=== PATIENT | female | born 1945 | race Caucasian/White ===

== ENCOUNTER → 2018-01-01 | Outpatient (CLI) | payer OTHER, MEDICARE | LOC: RAD 14:49 | DX: Z12.31 Encounter for screening mammogram for malignant neoplasm of breast (principal) ==

== ENCOUNTER → 2018-09-27 | Outpatient (CLI) | payer OTHER, MEDICARE | LOC: RAD 11:02 | DX: J18.9 Pneumonia, unspecified organism (principal); M47.814 Spondylosis without myelopathy or radiculopathy, thoracic region ==

== ENCOUNTER → 2018-11-11 | Outpatient (CLI) | payer OTHER, MEDICARE ==
[2018-11-11 09:41] LABS: CREATININE 0.9 mg/dL (0.6-1.0)
== END ==
LOC: CAT 09:06
PROVIDERS: Family Medicine
DX: K44.9 Diaphragmatic hernia without obstruction or gangrene (principal)

== ENCOUNTER → 2019-06-23 | Outpatient (CLI) | payer OTHER, MEDICARE | LOC: BC 14:55 | DX: Z12.31 Encounter for screening mammogram for malignant neoplasm of breast (principal) ==

== ENCOUNTER → 2019-06-25 | Outpatient (CLI) | payer OTHER, MEDICARE | LOC: ULTRA 14:00 | DX: N60.01 Solitary cyst of right breast (principal) ==

== ENCOUNTER → 2019-06-25 | Outpatient (CLI) | payer OTHER | LOC: CAT 14:40 | DX: Z13.6 Encounter for screening for cardiovascular disorders (principal); E78.00 Pure hypercholesterolemia, unspecified; I25.10 Atherosclerotic heart disease of native coronary artery without angina pectoris ==

== ENCOUNTER → 2020-02-13 | Outpatient (CLI) | payer OTHER, MEDICARE | LOC: ULTRA 12:24 | DX: R60.0 Localized edema (principal) ==

== ENCOUNTER → 2020-07-13 | Outpatient (CLI) | payer OTHER, MEDICARE | LOC: RAD 13:27 | PROVIDERS: ATTEND Family Medicine | DX: Z12.31 Encounter for screening mammogram for malignant neoplasm of breast (principal) ==

== ENCOUNTER 2020-12-17 18:40 | Inpatient (IN) | payer OTHER, MEDICARE ==
[~2020-12-17] VITALS: Ht 162.6 cm; Wt 107.0 kg
--- NOTE | ~2020-12-17 | P ---
[facility] [place] [address] PROCEDURE REPORT Name: PAUL ISRAEL Room #: 440-P [facility] IN M.R.#: [id number] Admission: 12/17/20 Attend Phys: Thomas Reyes MD Discharge: Date of : 41 Report #: [id number] THIS REPORT FOR: cc: Maximo Reis MD, Neal A. MD McElhinney, Christian C. MD ~ DATE OF SERVICE: 12/19/2020 PROCEDURE PERFORMED: Upper endoscopy with biopsies. HISTORY OF PRESENT ILLNESS: The patient is a 75-year-old female with recent nausea, vomiting, bright red blood per rectum and diarrhea. CT was essentially negative. Plan is for EGD and flexible sigmoidoscopy. The patient denies any dysphagia. She has been on PPI therapy. DESCRIPTION OF PROCEDURE: The risks and benefits of the procedure were explained to the patient, those risks including but not limited to bleeding, perforation and the risk of sedation. She understood these risks and gave informed consent. Sedation was given using propofol per anesthesia. Next, using a standard Olympus upper endoscope, the scope was placed in the patient's mouth and advanced under direct vision through the esophagus, stomach and into the second portion of the duodenum. The larynx was normal in appearance. The esophagus was normal throughout. The GE junction was normal. Upon entering the stomach, a small hiatal hernia was noted. Overall, the gastric mucosa was normal in the fundus and body. A mild gastritis was noted in the gastric antrum, but no evidence of ulcerations or bleeding. Biopsies were obtained to rule out H. pylori. The pylorus was normal and patent. The duodenal bulb, first and second portion were all normal. The scope was then withdrawn and the procedure terminated. The patient tolerated the procedure well. IMPRESSION: 1. Small hiatal hernia. 2. Mild gastritis. 3. Otherwise, normal upper endoscopy. RECOMMENDATIONS: 1. Await biopsy results. 2. Continue PPI therapy and antinausea medications p.r.n. 3. We will proceed with flexible sigmoidoscopy next today. [facility] [address] [place] [address] PROCEDURE REPORT Name: ISRAELIESHAPAUL N Room #: 440-P [facility] IN M.R.#: [id number] Admission: 12/17/20 Attend Phys: Thomas Reyes MD Discharge: Date of : 41 Report #: [id number] Thank you for allowing me to participate in her care. By: [id number] Nelson Damian MD /nt
--- NOTE | ~2020-12-17 | P ---
[place] [address] PROCEDURE REPORT Name: PAUL ISRAEL Room #: 440-P ADM IN M.R.#: [id number] Admission: 12/17/20 Attend Phys: Thomas Reyes MD Discharge: Date of : 41 Report #: [id number] THIS REPORT FOR: cc: Maximo Reis MD, Neal A. MD McElhinney, Christian C. MD ~ DATE OF SERVICE: 12/19/2020 PROCEDURE PERFORMED: Flexible sigmoidoscopy with biopsies. HISTORY OF PRESENT ILLNESS: The patient is a 75-year-old female with recent nausea, vomiting, diarrhea and bright red blood per rectum. She apparently underwent a colonoscopy by Dr. Moraes, my partner approximately 6 months ago in which polyps were removed, but otherwise negative, possible history of diverticulosis per the patient. A CT scan of the abdomen and pelvis was performed on admission on 12/17/2020 showing moderate hiatal hernia, fatty infiltration of the liver, appendix was normal, moderate stool in the colon. No evidence of colitis or inflammation. She also has a history of CLL. Her hemoglobin on admission was 13.8, today is 12.8. She reports passing several clots of bright red blood over the last few days. She also complains of low crampy abdominal pain. Upper endoscopy was just performed, which was essentially normal other than mild gastritis and a small hiatal hernia. Plan is for flexible sigmoidoscopy. DESCRIPTION OF PROCEDURE: The risks and benefits of the procedure were explained to the patient, those risks including but not limited to bleeding, perforation and the risk of sedation. She understood these risks and gave informed consent. Sedation was given using propofol per anesthesia. Next, a digital rectal exam showed small external hemorrhoid, nonbleeding, otherwise normal. Next, using a standard Olympus colonoscope, the scope was placed in the patient's anus and advanced under direct vision into the mid ascending colon. The prep was fairly good throughout. There was a small amount of stool. Multiple washings and aspirations were performed. The ascending, transverse, descending and sigmoid colon were all normal. Random biopsies were obtained to rule out the possibility of microscopic colitis. The rectal mucosa was normal with the exception of very mild erythema noted in the very distal rectum. I suspect this is more prep effect; however, I did obtain biopsies to rule out colitis. Again, no bleeding. On retroflexion, small internal hemorrhoids were noted. No evidence of bleeding. Close examination of the anal canal again showed small internal hemorrhoids, small external hemorrhoids, no bleeding. No evidence of fissure. There was no evidence of blood throughout the exam today. The scope was then withdrawn and the procedure terminated. The patient tolerated the procedure well. IMPRESSION: [address] [place] [address] PROCEDURE REPORT Name: PAUL ISRAEL Batsheva Room #: 440-P [facility] IN M.R.#: [id number] Admission: 12/17/20 Attend Phys: Thomas Reyes MD Discharge: Date of : 41 Report #: [id number] 1. Small internal and external hemorrhoids, likely source of recent bleeding. 2. Otherwise, essentially normal flexible sigmoidoscopy. No obvious colitis, although there was mild erythema noted in the distal rectum. Biopsies were obtained. RECOMMENDATIONS: 1. Await biopsy results. 2. We will advance diet. 3. Likely discharge home today. Thank you for allowing me to participate in her care. By: 1138 1215 Nelson Damian MD /nt
[2020-12-17 19:08] VITALS: BP 183/99
[2020-12-17 19:36] LABS: HEMATOCRIT 41.6 % (37.0-47.0); HEMOGLOBIN 13.8 gm/dL (12.0-15.0); MCH 31.3 pg (26.0-34.0); MCHC 33.2 g/dL (28.0-37.0); MCV 94.3 fL (80.0-100.0); PLATELET COUNT 191 thou/uL (150-400); RBC 4.41 mil/uL (4.20-5.00); RDW 14.2 % (10.5-14.5); WBC 16.8 thou/uL (4.0-11.0)
[2020-12-17 19:45] LABS: ANION GAP 11 mmol/L (7-16); BUN 20 mg/dL (7-18); CALCIUM 9.2 mg/dL (8.5-10.1); CHLORIDE 103 mmol/L (98-107); CO2 27 mmol/L (21-32); GLUCOSE 95 mg/dL (74-106); POTASSIUM 3.9 mmol/L (3.5-5.1); SODIUM 141 mmol/L (136-145)
[2020-12-17 19:51] LABS: APTT 23.8 Seconds (24.5-32.8); PROTIME 10.4 Seconds (9.3-11.4)
[2020-12-17 19:55] LABS: ALBUMIN 4.1 g/dL (3.4-5.0); SGOT 37 U/L (15-37); SGPT 48 U/L (14-59); TOTAL BILIRUBIN 0.3 mg/dL (0.2-1.0); TOTAL PROTEIN 7.7 g/dL (6.4-8.2); TROPONIN-I <0.06 ng/mL (<0.06)
[2020-12-17 20:26] LABS: ABSOLUTE NEUTROPHILS 4.9 thou/uL (1.4-8.2)
[2020-12-17] MEDS ORDERED: ALLOPURINOL 30300 M1 PO (20:44)
[2020-12-17] MEDS ORDERED: LEXAPRO 10 MG T10 M2 PO (20:44)
[2020-12-17] MEDS ORDERED: MYRBETRIQ50 MG PO (20:44)
[2020-12-17] MEDS ORDERED: AMOX TR-K CLV1 EAC4 PO (20:45)
[2020-12-17] MEDS ORDERED: PROTONIX40 M2 PO (20:45)
[2020-12-17] MEDS ORDERED: ROSUVASTATIN CAL5 MG PO (20:45)
[2020-12-17] MEDS ORDERED: SUPER QUINTS1 EACH PO (20:46)
[2020-12-17] MEDS ORDERED: MULTI-VITAMIN1 EAC5 PO (20:47)
[2020-12-17] MEDS ORDERED: CITRACAL + D M1 EACH PO (20:48)
[2020-12-17] MEDS ORDERED: PROBIOTIC1 EAC7 PO (20:48)
[2020-12-17] MEDS ORDERED: METAMUCIL1 EAC1 PO (20:49)
[2020-12-17 20:54] VITALS: BP 168/75
[2020-12-17 21:40] VITALS: BP 165/87
--- NOTE | 2020-12-17 21:55 | NUR ---
SPOKE TO ANATOLIY JULES. UPDATED THAT PT STARTED HAVING CHEST PAIN. REPORTS TO DRAWN REPEAT TROP AND COMPLETED EKG WHICH JORGE A WILL LOOK AT WHEN SHE SEES THE PATIENT.
--- NOTE | 2020-12-17 22:15 | NUR ---
ANATOLIY JULES, CALLED AT THIS TIME. MESSAGE LEFT THAT PT IS TRANSFERRING TO FLOOR AND THAT EKG WILL BE GOING WITH HER
[2020-12-17 22:40] VITALS: BP 174/76
[2020-12-18 02:07] VITALS: BP 158/74
[2020-12-18 04:45] VITALS: BP 181/92
[2020-12-18 04:58] LABS: HEMATOCRIT 38.6 % (37.0-47.0); HEMOGLOBIN 12.8 gm/dL (12.0-15.0); MCH 31.6 pg (26.0-34.0); MCHC 33.3 g/dL (28.0-37.0); MCV 94.9 fL (80.0-100.0); RBC 4.07 mil/uL (4.20-5.00); RDW 13.9 % (10.5-14.5); WBC 13.1 thou/uL (4.0-11.0)
[2020-12-18 05:19] LABS: CALCIUM 8.4 mg/dL (8.5-10.1); CREATININE 0.8 mg/dL (0.6-1.0); POTASSIUM 3.6 mmol/L (3.5-5.1)
--- NOTE | 2020-12-18 05:36 | NUR ---
ADMISSION COMPLETED. PT ARRIVED TO UNIT AT AROUND 0030 HRS. ALERT AND ORIENTED. UP TO BATHROOM WITH SBA.DENIES PAIN. IVF AND IV ABTS GIVEN. NO SIGNS OF BLOODY STOOLS. NO BM TONIGHT. AFEBRILE. COVID NEGATIVE. ON ROOM AIR-NO DISTRESS.TOLERATING CLEAR LIQUIDS.VOIDING OK.BP ELEVATED, PRN HYDRALAZINE GIVEN.
[2020-12-18 06:17] VITALS: BP 155/79
[2020-12-18 09:04] VITALS: BP 130/67
[2020-12-18 10:47] LABS: HEMATOCRIT 42.6 % (37.0-47.0); HEMOGLOBIN 13.7 gm/dL (12.0-15.0)
[2020-12-18 15:55] VITALS: BP 118/51
[2020-12-18 18:59] LABS: URINE BILIRUBIN NEGATIVE (Negative); URINE BLOOD NEGATIVE (Negative); URINE CLARITY CLEAR; URINE COLOR YELLOW; URINE GLUCOSE-RANDOM* NEGATIVE (Negative); URINE KETONES NEGATIVE (Negative); URINE LEUKOCYTES-REFLEX NEGATIVE (Negative); URINE NITRITE-REFLEX NEGATIVE (Negative); URINE PROTEIN (DIPSTICK) NEGATIVE (Negative); URINE UROBILINOGEN 0.2 E.U./dl (0.2-1.0)
--- NOTE | 2020-12-18 20:08 | NUR ---
ASSUMED PT CARE AROUND 0715. PT ALERT X ORIENTED X4. STAND BY ASST. ON ROOM AIR. IV LF AC / NS RUNNING AT 75 ML/HR. C/O HEAD ACHE, TYLENOL GIVEN FOR LORD WITH PARTIAL PAIN RELIEF. URINE AND STOOL SAMPLE COLLECTED AND SEND TO LAB BY RN. NPO AFTER MIDNIGHT. FALL PREACAUTION IN PLACE. CALL LIGHT IN REACH, WILL CALL APPROPRIATELY. SHIFT REPORT GIVEN TO VAHE WINTERS.
[2020-12-18 20:10] VITALS: BP 153/77
[2020-12-19 03:10] VITALS: BP 141/72
--- NOTE | 2020-12-19 04:00 | NUR ---
PT WAS ANXIOUS AT THE START OF SHIFT BECAUSE SHE FELT THAT THE BOWEL PREP ORDERED WOULD NOT WORK. PT ALSO C/O EXTENSIVE HEADACHE AND WAS GIVEN OXY IR WHICH HELPED. PT IS STEADY TO THE BATHROOM. WITH URINARY FREQUENCY-BLADDER SCAN AT AROUND MIDNOC REFLECTED ONLY 6ML RESIDIUAL. ENEMA GIVEN THIS AM@ 0630, PT NOTED TO HAVE A BM IMMEDIATELY THEREAFTER. NPO AFTER MIDNOC.PLAN FOR SCOPE THIS AM.
[2020-12-19 05:34] LABS: ABSOLUTE NEUTROPHILS 4.4 thou/uL (1.4-8.2); BASOPHILS 0.7 % (0.0-2.0); EOSINOPHILS 3.7 % (0.0-3.0); HEMOGLOBIN 12.8 gm/dL (12.0-15.0); LYMPHOCYTES 50.3 % (24.0-44.0); MCH 31.3 pg (26.0-34.0); MCHC 32.8 g/dL (28.0-37.0); MCV 95.2 fL (80.0-100.0); MONOCYTES 4.9 % (1.0-8.0); PLATELET COUNT 169 thou/uL (150-400); POLYS 40.4 % (36.0-66.0); RDW 14.1 % (10.5-14.5); WBC 10.9 thou/uL (4.0-11.0)
[2020-12-19 05:45] LABS: CALCIUM 9.1 mg/dL (8.5-10.1); MAGNESIUM 1.9 mg/dL (1.8-2.4); POTASSIUM 3.7 mmol/L (3.5-5.1)
[2020-12-19 07:25] VITALS: BP 145/67
--- NOTE | 2020-12-19 10:21 | HC ---
[facility] [place] [place] [address] CONSULTATION Name: PAUL ISRAEL Room #: 440-P ADM IN M.R.#: [id number] Admission: 12/17/20 Attend Phys: Thomas Reyes MD Discharge: Date of : 41 Report #: [id number] THIS REPORT FOR: cc: Maximo Reis MD, Neal A. MD McElhinney, Christian C. MD ~ DATE OF SERVICE: 12/18/2020 HISTORY OF PRESENT ILLNESS: The patient is a 75-year-old female who on Sunday began having nausea, vomiting, and followed by diarrhea, also associated with crampy lower abdominal pain. Since that time, she continues to have intermittent low abdominal pain and has passed bright red blood with clots each day 1 episode. She underwent a colonoscopy and an upper endoscopy by my partner, Dr. Moraes approximately 6 months ago. This was reportedly negative other than small polyps removed, possible diverticulosis was noted at that time. The patient underwent a CT scan of her abdomen and pelvis yesterday, which showed no evidence of colitis, moderate hiatal hernia was noted, fatty infiltration of the liver was seen. No acute changes were noted. The patient had another episode of nausea and vomiting this morning. She denies any fevers or chills. No chest pain currently or shortness of breath. She does have a history of CLL. She is not undergoing treatment for this. She also has a history of gastroesophageal reflux disease, takes omeprazole on a daily basis. She also takes Aleve each day for arthritic type pain. Her hemoglobin on admission was 13.9, hemoglobin at this time is 12.8. She is on clear liquids currently. White blood cell count is 13.1, which is down from 16.8 yesterday. She was started on IV Zosyn. PAST MEDICAL HISTORY: CLL, gastroesophageal reflux disease, history of colonic polyps with colonoscopy 6 months ago, history of depression, gout, bladder reconstruction surgery, hysterectomy, previous knee arthroscopy. MEDICATIONS ON ADMISSION: Lexapro, allopurinol. She was started on Augmentin several days ago, Protonix 40 mg on a daily basis, vitamin B, multivitamin, calcium, probiotic, Metamucil for history of constipation. REVIEW OF SYSTEMS: As per HPI. ALLERGIES: FLAGYL. FAMILY HISTORY: Positive for colon cancer in her mother in her 90s. SOCIAL HISTORY: She denies any tobacco or alcohol use. PHYSICAL EXAMINATION: VITAL SIGNS: Temperature is 97.7, pulse 67, blood pressure 130/67, respiratory [address] [address] CONSULTATION Name: PAUL ISRAEL Room #: [facility] IN .R.#: [id number] Admission: 12/17/20 Attend Phys: Thomas Reyes MD Discharge: Date of : 43 Report #: [id number] rate is 18. GENERAL: She is alert and oriented x 3, in no acute distress. HEENT: Sclerae nonicteric. Oropharynx clear. NECK: Supple, without lymphadenopathy. CARDIOVASCULAR: Regular rate and rhythm. CHEST: Clear to auscultation bilaterally. ABDOMEN: Soft. She is obese. She is tender to palpation in the lower abdomen bilaterally. Nondistended. Positive bowel sounds. EXTREMITIES: No cyanosis, clubbing or edema. LABORATORY DATA: Sodium 143, potassium 3.6, chloride 108, bicarbonate 24, BUN 16, creatinine 0.8, glucose 104, AST 37, total bilirubin 0.3, alkaline phosphatase 141, ALT 48, total protein 7.7, albumin 4.1. Troponin was less than 0.06. INR 1.0. WBC 13.1, hemoglobin 12.8, hemoglobin on admission was 13.9, MCV of 94.4, platelet count 159, lymphocytes 64. Coronavirus was negative yesterday. ASSESSMENT AND PLAN: Nausea, vomiting, bright red blood per rectum. I had a long discussion today with the patient and her about potential etiologies, suspect she may have an infectious type etiology, which led to nausea, vomiting, diarrhea; however, now is also having bright red blood per rectum as well as crampy lower abdominal pain. CT shows no acute changes. It is possible she has a history of diverticulosis reportedly. She could have a diverticular bleed, but this would not explain her nausea and vomiting, need to consider the possibility of colitis or ischemic colitis based on her history. Also consider the possibility of hemorrhoidal bleed in the setting of a recent gastroenteritis. Because of these factors, we discussed proceeding with an esophagogastroduodenoscopy tomorrow with a flexible sigmoidoscopy as she has just had a colonoscopy 6 months ago, she is in favor of this. In the meantime, we will continue clear liquids. We will give the patient some MiraLax today and an enema in the morning. We will continue Zosyn at this time. She does have an elevated white count, but also has a history of chronic lymphocytic leukemia, currently afebrile. I will make further recommendations after endoscopy. Thank you for allowing me to participate in her care. <ELECTRONICALLY SIGNED> By: Nelson Damian MD 12/19/20 1021 1101 1237 Nelson Damian MD /nt
[2020-12-19] MEDS ORDERED: CLARITIN10 MG PO (14:10)
[2020-12-19] MEDS ORDERED: FLONASE 0.05%50 MCG NASAL (14:11)
[2020-12-19] MEDS ORDERED: LIDODERM1 EACH TOP (14:11)
[2020-12-19 15:25] VITALS: BP 145/67
--- NOTE | 2020-12-19 21:03 | NUR ---
ASSUMED PT CARE AROUND 0730. ALERT XORIENTED X4. ON ROOM AIR. STAND BY ASST. IV LF AC/NS. HAD BOWEL PREP BY PLASMA TABLE OPERATOR FOR EGD. PT WENT FOR THE PROCEDURE AROUND 0900, PT WAS WAITING IN THE ROOM, CAME BACK AROUND 1200. GASTRIC BIOPSY DONE TO RULE OF COLITIS. PACU REPORT GOT NO BLEDDING, INTERNAL HEMORRHAGE FOUND. PATIENT ATE LUNCH AND WAS DISCHARGED AROUND 1530. DISCHARGE EDU DONE BY VIANEY
--- NOTE | 2020-12-20 07:21 | EKG ---
[address] [address] ELECTROCARDIOGRAM REPORT Name: PAUL ISRAEL Room #: 440-P [facility].#: [id number] Admission: 12/17/20 Attend Phys: Thomas Reyes MD Discharge: 12/19/20 Date of : 43 Report #: [id number] [facility] Test Date: 2020-12-17 Test Time: 22:04:52 Pat Name: PAUL ISRAEL Department: Room: [facility] Gender: F Borderer: KEL : 1945 Requested By: Scarlett Rascon Order Number: [id number] MD: Chris Iglesias Measurements Intervals [place] Rate: 65 P: 41 [place]: 187 QRS: -7 QRSD: 77 T: 118 QT: 611 QTc: 636 Interpretive Statements Sinus rhythm Probable left atrial enlargement Inferior infarct, old Prolonged QT interval Baseline wander in lead(s) V2 No previous ECG available for comparison Electronically Signed On 12-20-2020 7:20:58 CDT by Chris Iglesias [email or web address] <ELECTRONICALLY SIGNED> By: Chris Iglesias MD, [facility] 12/20/20719 03 03 Chris Iglesias MD, [facility] /EPI
--- NOTE | 2020-12-21 17:06 | PATH ---
[facility] [address] [address] PATHOLOGY RPT PROCEDURE Name: DORYS ISRAEL Room #: 440-P [facility] IN M.R.#: [id number] Admission: 12/17/20 Date of : 41 Discharge: 12/19/20 Report #: [id number] Path Case #: [id number] [facility] Accession Number: [id number] . 01 Material submitted: . PART A: gastrointestinal site - BIOPSY GASTRIC PART B: colon - BIOSPY RANDOM COLON. Modifiers: RANDOM PART C: rectum - BIOSPY DISTAL RECTUM. Modifiers: distal . 01 Clinical history: . RULE OUT H PYLORI RULE OUT MICROSCOPIC COLITIS RULE OUT COLITIS . 02 Diagnosis: A. Gastric mucosa, gastric to rule out H. pylori, endoscopic biopsy: - Mild chronic active gastritis. - Negative for intestinal metaplasia or atrophy. - Negative for Helicobacter pylori (properly controlled immunohistochemical stain performed). . B. Large intestine mucosa, random colon, endoscopic biopsy: - Scattered rare focus of acute cryptitis, see comment. - Negative for microscopic colitis. - Negative for dysplasia or malignancy. . C. Large intestine, rectum to rule out colitis, endoscopic biopsy: - Lamina propria hemorrhage and a scattered rare focus of cryptitis, see comment. - Negative for microscopic colitis. - Negative for dysplasia or malignancy. . 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 02 Comment: B and C. Sections of the colonic mucosa designated "random colon and distal rectum" show focal cryptitis, and a moderately cellular lamina propria composed predominantly of lymphocytes and plasma cells and occasional eosinophils. Surface ulceration is not identified. There are no crypt abscesses, granulomas or viral inclusions. The process affects all the fragments with a similar intensity. Given the description, the differential diagnosis includes focal acute self-limited episode of colitis, medication/drug induced colitis, diverticulitis as well as a resolving episode of colitis. Please correlate with clinical as well as endoscopic findings. 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 02 Electronically signed: . Chante Godinez MD, Pathologist NPI- [id number] . 01 Gross description: . A. The specimen is received in formalin, labeled "Dorys Israel, biopsy gastric". Received are three segments of pale mercedes tissue measuring 0.3 cm each in maximum dimensions. The specimen is submitted entirely in cassette A1. . B. The specimen is received in formalin, labeled "Dorys Israel, biopsy random colon". Received are two segments of pale mercedes tissue measuring 0.4 and 0.5 cm in maximum dimensions. The specimen is submitted entirely in cassette B1. . C. The specimen is received in formalin, labeled "Dorys Israel, biopsy distal rectum". Received are two segments of pink-mercedes tissue measuring 0.5 and 0.6 cm in maximum dimensions. The specimen is submitted entirely in cassette C1. (CAA; 12/20/2020) QAC/QAC 12/20/2020 1329 Local . 02 Pathologist provided ICD-10: K29.50, K62.89 . 02 CPT . 682397, 260385, [id number], [id number] Specimen Comment: A courtesy copy of this report has been sent to [phone] Specimen Comment: Report sent to Performed at: [address], [place], [place] [id number] MD Too Dominguez MD Phone: [phone] Performed at: [address] [id number] MD Chante Godinez MD Phone: [phone]
== END 2020-12-19 17:56 | disposition home or self-care (01) | DRG 378 ==
LOC: ER 18:40 → EROBS 20:17 → 4S 22:10
PROVIDERS: Emergency Medicine; Internal Medicine; Nurse Practitioner Acute Care; ADMIT Hospitalist; ATTEND Hospitalist
PROC: 0DB68ZX Excision of Stomach, Via Natural or Artificial Opening Endoscopic, Diagnostic (ICD-10-PCS; principal; 2020-12-19)
PROC: 0DBE8ZX Excision of Large Intestine, Via Natural or Artificial Opening Endoscopic, Diagnostic (ICD-10-PCS; 2020-12-19)
DX: K29.71 Gastritis, unspecified, with bleeding (principal); C91.11 Chronic lymphocytic leukemia of B-cell type in remission; I10 Essential (primary) hypertension; K64.4 Residual hemorrhoidal skin tags; K44.9 Diaphragmatic hernia without obstruction or gangrene; F32.9 Major depressive disorder, single episode, unspecified; E78.5 Hyperlipidemia, unspecified; K21.9 Gastro-esophageal reflux disease without esophagitis; K58.1 Irritable bowel syndrome with constipation; K64.8 Other hemorrhoids; M10.9 Gout, unspecified; Z20.822 Contact with and (suspected) exposure to COVID-19; Z88.8 Allergy status to other drugs, medicaments and biological substances; Z79.899 Other long term (current) drug therapy; Z90.710 Acquired absence of both cervix and uterus; Z72.89 Other problems related to lifestyle
CPT/HCPCS: 10102; 62110; 62900; 70005

== ENCOUNTER → 2020-12-17 | Outpatient (CLI) | payer OTHER, MEDICARE ==
[~2020-12-17] MED LIST: ALLOPURINOL 30300 M1 PO; AMOX TR-K CLV1 EAC4 PO; CITRACAL + D M1 EACH PO; LEXAPRO 10 MG T10 M2 PO; METAMUCIL1 EAC1 PO; MULTI-VITAMIN1 EAC5 PO; MYRBETRIQ50 MG PO; PROBIOTIC1 EAC7 PO; PROTONIX40 M2 PO; ROSUVASTATIN CAL5 MG PO; SUPER QUINTS1 EACH PO
[2020-12-17 12:40] LABS: HEMATOCRIT 41.9 % (37.0-47.0); HEMOGLOBIN 13.9 gm/dL (12.0-15.0); MCH 31.2 pg (26.0-34.0); MCV 94.4 fL (80.0-100.0); PLATELET COUNT 191 thou/uL (150-400); RBC 4.44 mil/uL (4.20-5.00); WBC 14.6 thou/uL (4.0-11.0)
[2020-12-17 12:52] LABS: CALCIUM 9.4 mg/dL (8.5-10.1); CREATININE 0.9 mg/dL (0.6-1.0); POTASSIUM 4.4 mmol/L (3.5-5.1)
[2020-12-17 13:01] LABS: ALBUMIN 3.8 g/dL (3.4-5.0); TOTAL BILIRUBIN 0.4 mg/dL (0.2-1.0); TOTAL PROTEIN 7.6 g/dL (6.4-8.2)
[2020-12-17 14:29] LABS: ABSOLUTE NEUTROPHILS 5.3 thou/uL (1.4-8.2)
== END ==
LOC: CAT 12:13
PROVIDERS: ATTEND Family Medicine
DX: K44.9 Diaphragmatic hernia without obstruction or gangrene (principal); K76.0 Fatty (change of) liver, not elsewhere classified; R10.32 Left lower quadrant pain; N20.0 Calculus of kidney; M47.816 Spondylosis without myelopathy or radiculopathy, lumbar region

== ENCOUNTER → 2021-08-04 | Outpatient (CLI) | payer OTHER, MEDICARE ==
[~2021-08-04] MED LIST changes: +CLARITIN10 MG PO; +FLONASE 0.05%50 MCG NASAL; +LIDODERM1 EACH TOP
== END | disposition home or self-care (01) ==
LOC: RAD 15:29
PROVIDERS: ATTEND Family Medicine
DX: Z12.31 Encounter for screening mammogram for malignant neoplasm of breast (principal)